=== PATIENT | male | born 1965 | race Caucasian/White ===

== ENCOUNTER 2020-12-14 17:44 | Emergency (ER) | payer BC ==
[~2020-12-14] VITALS: Ht 175.3 cm; Wt 70.3 kg
--- NOTE | 2020-12-14 17:44 | NUR ---
BROUGHT BACK TO BED #3 AND TRIAGED. REPORT GIVEN TO ASYA Addendum: 12/14/20 at 1814 by [email or web address] PT COMES TO ER WITH C/O GENERALIZED ABDOMINAL PAIN FOR SEVERAL WEEKS, AND NAUSEA/VOMITING X 6 DAYS. STATES STARTING VERBYD AND SEROQUEL 1 WEEK AGO. ALSO VERBALIZES DECREASE IN APPETITE AND POLYURIA. ABD ROUND/SOFT, NT TO PALPATION. BS CHECKED AT BEDSIDE 106MG/DL. PT DENIES ANY SOB OR CP.
[2020-12-14 17:45] VITALS: BP_SYST 127
--- NOTE | 2020-12-14 18:01 | NUR ---
PT COMES TO ER WITH C/O GENERALIZED NON RADIATING ABDOMINAL PAIN FOR SEVERAL WEEKS WORSENING IN THE LAST TWO DAYS, NOW ASSOCIATED WITH NAUSEA/VOMITING X 6 DAYS. PT DENIES DYSURIA/FEVERS/CHILLS. SKIN W/D/I. REPORTS STARTING VYBRDE AND SEROQUEL LAST WEEK. ABDOMEN LARGE, SOFT, NT TO PALPATION.
[2020-12-14] MEDS ORDERED: NACL 0.9% 1,000 ML IV ONE (18:15)
--- NOTE | 2020-12-14 19:09 | NUR ---
REPORT RECEIVED FROM SEMAJ SKY ASSUMED ALL CARE OF PATIENT.
[2020-12-14 19:12] LABS: ANION GAP 6 (5-15); CALCIUM 8.9 mg/dL (8.4-11.0); CHLORIDE 99 mmol/L (98-107); CREATININE 0.88 mg/dL (0.55-1.30); GLUCOSE 95 mg/dL (70-99); POTASSIUM 3.6 mmol/L (3.5-5.1); SODIUM SERUM 135 mmol/L (136-145); UREA NITROGEN, BLOOD 7 mg/dL (8-21)
[2020-12-14 19:15] LABS: GFR AFRICAN AMERICAN 116 mL/min (>90)
[2020-12-14] MEDS ORDERED: IBUPROFEN 800 MG TABLET PO ONE (19:15)
[2020-12-14 19:18] LABS: ALANINE AMINOTRANSFERASE 33 U/L (12-78); ALBUMIN 4.2 g/dL (3.4-4.8); AMYLASE 80 U/L (0-100); ASPARTATE AMINOTRANSFERASE 14 U/L (10-37); LIPASE 133 U/L (73-393); TOTAL BILIRUBIN 0.7 mg/dL (0.0-1.0)
[2020-12-14] MEDS ORDERED: ONDANSETRON 4 MG ODT TAB PO ONE (19:30)
[2020-12-14 19:39] LABS: INR 1.1 (0.80-1.20)
[2020-12-14 19:41] LABS: ACETONE, SERUM NEGATIVE (NEGATIVE)
--- NOTE | 2020-12-14 20:01 | NUR ---
Patient resting quietly. No acute distress noted. Vital signs within normal range.
[2020-12-14 20:05] LABS: BILIRUBIN,URINE NEGATIVE (NEGATIVE); BLOOD, URINE NEGATIVE (NEGATIVE); CLARITY/URINE CLEAR (CLEAR); COLOR,URINE YELLOW (YELLOW); GLUCOSE,URINE NEGATIVE (NEGATIVE); KETONES,URINE NEGATIVE (NEGATIVE); LEUKOCYTE ESTERASE ,URINE NEGATIVE (NEGATIVE); NITRITE, URINE NEGATIVE (NEGATIVE); PROTEIN URINE NEGATIVE (NEGATIVE)
[2020-12-14 20:20] LABS: WHITE BLOOD COUNT (AUTO) 5.4 K/uL (4.8-10.8)
[2020-12-14 20:21] LABS: BASOPHILS % (AUTO) 0.4 % (0.0-2.0); EOSINOPHILS % (AUTO) 0.7 % (0.0-4.0); HEMATOCRIT 44.3 % (36-54); HEMOGLOBIN 15.5 g/dL (14.0-18.0); LYMPHOCYTES % (AUTO) 37.5 % (20.5-51.5); MEAN CORPUSCULAR HEMOGLOBIN 32 pg (27-31); MEAN CORPUSCULAR HGB CONC 35 % (32-36); MEAN CORPUSCULAR VOLUME 90 fL (79.0-98.0); MONOCYTES % (AUTO) 8.7 % (1.7-9.3); NEUTROPHILS % (AUTO) 52.7 % (40.0-70.0); PLATELET COUNT (AUTO) 257 K/uL (130-430); RED BLOOD CELL COUNT(AUTO) 4.93 MIL/uL (4.2-6.2); RED CELL DISTRIBUTION WIDTH 12.9 % (9.0-15.0)
[2020-12-14 20:22] LABS: MONOCYTES # (AUTO) 0.5 K/uL (0.0-1.0); NEUTROPHILS # (AUTO) 2.8 K/uL (1.8-7.7)
[2020-12-14] MEDS ORDERED: ONDA-8 TL (20:23)
--- NOTE | 2020-12-14 20:39 | NUR ---
MD AT BEDSIDE DISCUSSING RESULTS WITH PATIENT.
[2020-12-14 20:48] VITALS: BP_SYST 120
--- NOTE | 2020-12-14 20:48 | NUR ---
Patient given written and verbal discharge instructions and verbalizes understanding. ER MD discussed with patient the results and treatment provided. Patient in stable condition. ID arm band removed. IV catheter removed intact and dressing applied, no active bleeding. Rx of ZOFRAN given. Patient educated on pain management and to follow up with PMD. Pain Scale 0/10 Opportunity for questions provided and answered. Medication side effect fact sheet provided.
== END 2020-12-14 20:48 | disposition home or self-care (01) ==
LOC: SED 17:44
DX: R63.0 Anorexia (principal); I10 Essential (primary) hypertension; Z79.899 Other long term (current) drug therapy
CPT/HCPCS: 36415; 71045; 80053; 81003; 82009; 82150; 82550; 82962; 83036; 83605; 83690; 84484; 85025; 85610; 85730; 93005; 96360; 99285; J7030; Q0162

== ENCOUNTER 2021-10-18 11:02 | Emergency (ER) | payer BC ==
[~2021-10-18] VITALS: Ht 175.3 cm; Wt 72.1 kg
[2021-10-18 11:02] VITALS: BP_SYST 119
[~2021-10-18 11:02] MED LIST: ONDA-8 TL
--- NOTE | 2021-10-18 11:02 | NUR ---
Patient triaged and placed in waiting room. VSS and patient appears in no acute distress at this time. Accompanied by SELF, awaiting available bed, and MD notified of need for MSE.
--- NOTE | 2021-10-18 11:53 | NUR ---
BROUGHT BACK TO BED #6 AND REPORT GIVEN TO DONALDO
[2021-10-18] MEDS ORDERED: KETOROLAC TROMETHAMINE 60 MG/2 ML VIAL IM ONE (13:00)
[2021-10-18] MEDS ORDERED: ALPRAZolam 0.25 MG TABLET PO ONE (13:00)
--- NOTE | 2021-10-18 13:05 | NUR ---
DR BORGES AND PT BEDSIDE
--- NOTE | 2021-10-18 13:07 | NUR ---
/PT DROVE SELF TO ER WITH COMPLAINT OF RIGHT SIDED CHEST PAIN 09/02 WHICH STARTED 4 DAYS AGO WHEN THE PATIENT WOKE UP AND. PT IS ON MONITOR VS ARE WITHIN NORMLA LIMITS. PT IS AOX4, HE IS IN BED RESTING COMFORTABLY WITH BED LOWERED LOCKED AND RAILS UP. WILL CONTINUE TO MONITOR
[2021-10-18] MEDS ORDERED: IBUP-1969 PO (13:13)
[2021-10-18 14:32] VITALS: BP_SYST 136
--- NOTE | 2021-10-18 14:34 | NUR ---
Patient given written and verbal discharge instructions and verbalizes understanding. ER MD discussed with patient the results and treatment provided. Patient in stable condition. ID arm band removed. Rx of Ibuprofen given. Patient educated on pain management and to follow up with PMD. Pain Scale 2/10 Opportunity for questions provided and answered. Medication side effect fact sheet provided.
== END 2021-10-18 14:34 | disposition home or self-care (01) ==
LOC: SED 11:02
DX: S29.011A Strain of muscle and tendon of front wall of thorax, initial encounter (principal); I10 Essential (primary) hypertension; Z79.899 Other long term (current) drug therapy; E78.00 Pure hypercholesterolemia, unspecified; X58.XXXA Exposure to other specified factors, initial encounter; Y93.89 Activity, other specified; Y92.89 Other specified places as the place of occurrence of the external cause; Y99.8 Other external cause status
CPT/HCPCS: 99283; 71045; 96372; J1885; 93005